=== PATIENT | male | born 1995 | race African-American/Black ===

== ENCOUNTER 2016-12-30 19:30 | Emergency (ER) | payer SELFPAY ==
[~2016-12-30] VITALS: Ht 185.4 cm; Wt 79.2 kg
[2016-12-30 19:36] VITALS: TEMP 37; Ht 185.4 cm; Wt 79.2 kg
[2016-12-30] MEDS ORDERED: SODIUM CHLORIDE 0.9% 1000ML 1,000 ML IV STA (19:58)
[2016-12-30] MEDS ORDERED: DiphenhydrAMINE HCL 50 MG/ML VIAL IV STA (19:58)
[2016-12-30] MEDS ORDERED: FAMOTIDINE IV INJ 20 MG in DEXTROSE 5% 100ML 100 ML IV STA (19:58)
[2016-12-30] MEDS ORDERED: DEXAMETHASONE SOD INJ 10 MG/ML VIAL IV ONE (20:00)
[2016-12-30] MEDS ORDERED: FAMOTIDINE 20MG/102 ML D5W ONE (20:02)
--- NOTE | 2016-12-30 20:48 | EMERGENCY ROOM VISIT NOTE ---
History First contact with patient: 19:41 Chief Complaint: FACIAL PAIN/INJURY Stated Complaint: FACE PAIN, SWELLING AND BUMPS History of Present Illness The patient is a 21 year old male who presents to the Emergency Room via private vehicle for evaluation of a possible allergic reaction. The patient reports that he went for a run today and toward the end of the run, he began to experience itching of his head, bumps on the side of his neck and facial swelling. He reports that prior to the run, he had eaten pears from the dining [employer]. He states the symptoms occurred approximately one hour ago and have remained constant. He denies any previous reactions like this. He denies any known allergies. The patient denies shortness of breath, difficulty swallowing , abdominal pain, nausea or vomiting. Review of Systems A complete 10-point Review of Systems was discussed with the patient, with pertinent positives and negatives listed in the History of Present Illness. All remaining Review of Systems questions can be considered negative unless otherwise specified. Social History Smoking Status: Current Some Day Smoker Current/Historical Medications Scheduled Prednisone (Prednisone), 50 MG PO DAILY Allergies Coded Allergies: No Known Allergies (Unverified , 12/30/16) Physical Exam Vital Signs Date Time Temp Pulse Resp B/P Pulse Ox O2 Delivery O2 Flow Rate FiO2 12/30/16 21:08 74 18 118/70 98 12/30/16 19:36 37.0 89 20 140/75 97 Room Air Physical Exam VITALS: Vitals are noted on the nurse's note and reviewed by myself. Vital signs stable. GENERAL: This is a 21-year-old male, in no acute distress, nondiaphoretic, well- developed well-nourished. SKIN: There are multiple urticarial lesions over the left side of the neck. HEENT: Normocephalic. There is minimal perioral swelling. PERRLA. EOMI. Nares patent. Mucous membranes moist. Neck is supple without nuchal rigidity. HEART: Regular rate and rhythm without murmurs gallops or rubs. LUNGS: Clear to auscultation bilaterally without wheezes, rales or rhonchi. No retractions or accessory muscle use. ABDOMEN: Positive bowel sounds x 4. Soft, nontender. NEURO: Patient was alert and oriented to person place and time. Medical Decision & Procedures Medications Administered Medications (Trade) Dose Ordered Sig/Abdias Route Start Time Stop Time Status Last Admin Dose Admin Sodium Chloride (Nss 1000ml) 1,000 ml @ 999 mls/hr Q1H1M STAT IV 12/30/16 19:58 12/30/16 20:58 DC 12/30/16 20:14 999 MLS/HR Diphenhydramine HCl (Benadryl Inj) 25 mg NOW STAT IV 12/30/16 19:58 12/30/16 20:02 DC 12/30/16 20:12 25 MG Dexamethasone Sodium Phosphate (Decadron Inj) 10 mg NOW ONCE IV 12/30/16 20:00 12/30/16 20:02 DC 12/30/16 20:11 10 MG Famotidine (Pepcid 20mg/100 ml) 20 mg STK-MED ONCE .ROUTE 12/30/16 20:02 12/30/16 20:06 DC 12/30/16 20:15 20 MG Medical Decision Differential diagnosis includes allergic reaction, anaphylaxis, urticaria, among others. The patient was evaluated as above. He does present with symptoms consistent with a possible allergic reaction, although his allergy is unknown. The patient was treated with 1 L normal saline solution, 10 mg Decadron IV, 25 mg Benadryl IV and 20 mg Pepcid IV. He was reevaluated and felt much better, stating that he felt his facial swelling had completely resolved. The patient had no difficulty breathing, difficulty swallowing, or gastrointestinal symptoms to suggest anaphylaxis. He will be placed on a short course of prednisone and instructed to follow-up with his primary care provider and possibly an cataract lens generator. He will return for worsening symptoms. He verbalized understanding of my assessment and treatment plan and was discharged home in good condition. Impression Primary Impression: Urticaria Departure Information Dispostion Home / Self-Care Condition GOOD Prescriptions Prednisone (Prednisone) 50 Mg Tab 50 MG PO DAILY for 4 Days, #4 TAB Prov: Debbie Sawyer .PATTY 12/30/16 Referrals No Doctor, Assigned (PCP) Patient Instructions My [facility] Additional Instructions You have been treated in the Emergency Department for a possible Allergic Reaction. You have been treated and monitored in the Emergency Department appropriately. You should take Benadryl (diphenhydramine) 25-50 mg orally every 4-6 hours as needed for the next 5-7 days. This medication is [id number] and you will NOT need a prescription to purchase this at your local pharmacy. You have been prescribed Prednisone 50 mg to be taken orally once a day for the next 4 days. This is an anti-inflammatory medicine to be used to help minimize your symptoms. You should take the COMPLETE course of the medication. As with every Emergency Department visit, you should follow-up with your primary care provider in 2-3 days for reevaluation. You may also one to follow- up with an cataract lens generator for further evaluation. Return to the Emergency Department if your current symptoms worsen despite treatment course outlined above, or if you develop any of the following symptoms : wheezing, tongue or face swelling, tightness in your throat, shortness of breath, or fainting.
[2016-12-30] MEDS ORDERED: PRED50TA PO (20:49)
[2016-12-30 21:08] VITALS: BP 118/70; PULSE 74; O2SAT 98
== END 2016-12-30 21:10 | disposition home or self-care (01) ==
LOC: C.EDB 19:33 → C.EDC 21:10
DX: L50.9 Urticaria, unspecified (principal)